=== PATIENT | female | born 2000 | race Caucasian/White ===

== ENCOUNTER → 2018-11-26 | Outpatient (REF) | payer OTHER ==
[2018-11-26 18:11] LABS: PLATELET COUNT, AUTOMATED 495 K/uL (150-450)
== END ==
LOC: ZZSTITCHES 17:55
PROVIDERS: ATTEND Physician Assistant
DX: M54.2 Cervicalgia (principal); R22.1 Localized swelling, mass and lump, neck
CPT/HCPCS: 82310; 82374; 82435; 82565; 82947; 84132; 84295; 84520; 85025

== ENCOUNTER → 2018-11-27 | Outpatient (CLI) | payer OTHER ==
--- NOTE | 2018-11-27 11:33 | RADIOLOGY IMAGING REPORT ---
FACILITY: [facility] [place] PATIENT NAME: Le Mccloud : 2000 MR: [id number] V: [id number] EXAM DATE: ORDERING PHYSICIAN: SEEMA ROBERTO TECHNOLOGIST: Location: [facility] Patient: Le Mccloud : 2000 Visit/Account:[id number] Date of Sevice: 11/27/2018 Exam type: SOFT TISSUE HEAD NECK History: Strep throat, currently on antibiotics, lump left neck near year x3 days Comparison: None. Findings: There are numerous level five lymph nodes on the left ranging in size up to 1.2 x 0.7 x 1.8 cm. At l east three level two lymph nodes are identified on the left the largest measuring 2.8 x 1 x 2 cm. Th ere is a level three lymph node on the left measuring 1.1 x 0.4 x 0.6 centers. There are three level two lymph nodes on the right the largest measuring 1.7 x 0.4 x 0.4 cm. There i s a level five lymph node on the right measuring 1.2 x 0.3 x 0.5 cm IMPRESSION: 1. There multiple bilateral cervical lymph nodes more prominent on the left as detailed above. Give n the clinical history these may simply be reactive however short-term interval follow-up recommended , either clinically or sonographically Report Dictated By: Zeinab Metz MD at 11/27/2018 11:16 AM Report E-Signed By: Zeinab Metz MD at 11/27/2018 11:30 AM WSN:[email or web address]
== END ==
LOC: US 09:47
PROVIDERS: ATTEND Physician Assistant
DX: M54.2 Cervicalgia (principal); R22.1 Localized swelling, mass and lump, neck
CPT/HCPCS: 76536